=== PATIENT | male | born 1995 | race Caucasian/White ===

== ENCOUNTER 2017-09-07 11:58 | Emergency (ER) | payer BC ==
[2017-09-07] MEDS ORDERED: MAG HYDROX/AL HYDROX/SIMETH SUSP 30 ML UDCUP PO ONE (13:07)
[2017-09-07] MEDS ORDERED: METOCLOPRAMIDE HCL ORAL SOLN 10 MG/10 ML UDCUP PO ONE (13:07)
[2017-09-07] MEDS ORDERED: LIDOCAINE 2% VISCOUS SOLN 20 ML UDCUP PO ONE (13:07)
--- NOTE | 2017-09-07 13:10 | ER Document Report ---
ED General - General Chief Complaint: Nausea/Vomiting Stated Complaint: VOMITING Time Seen by Provider: 09/07/17 12:49 Notes: Patient presents with intermittent epigastric discomfort that started on Sunday. Denies any black or red stool and denies any medical problems other than having to use an inhaler sparingly. He was seen by his primary care physician 3 days ago and was given a work excuse with no medical intervention. He called the primary care physician today because his symptoms have continued and he is told to come to the emergency department. Denies any bilious or bloody vomitus. His pain is better he states after eating. Denies any recent fevers cough congestion or chest pain. He states that he does have burning in his throat but is worse after vomiting. TRAVEL OUTSIDE OF THE [place] IN LAST 30 DAYS: No - Related Data Allergies/Adverse Reactions: No Known Allergies Allergy (Verified 09/07/17 11:59) Past Medical History - Social History Smoking Status: Former Smoker Chew tobacco use (# tins/day): No Frequency of alcohol use: None Drug Abuse: None Family History: None Patient has suicidal ideation: No Patient has homicidal ideation: No Pulmonary Medical History: Reports: Hx Asthma Renal/ Medical History: Denies: Hx Peritoneal Dialysis Review of Systems - Review of Systems Constitutional: No symptoms reported EENT: Other - Burning in throat Cardiovascular: No symptoms reported Respiratory: No symptoms reported Gastrointestinal: See HPI, Nausea, Vomiting Genitourinary: No symptoms reported Male Genitourinary: No symptoms reported Musculoskeletal: No symptoms reported Skin: No symptoms reported Hematologic/Lymphatic: No symptoms reported Neurological/Psychological: No symptoms reported Physical Exam - Vital signs Vitals: Temp Pulse Resp BP Pulse Ox 97.9 F 57 L 18 147/92 H 98 09/07/17 12:09 09/07/17 12:09 09/07/17 12:09 09/07/17 12:09 09/07/17 12:09 - General General appearance: Appears well, Alert - HEENT Head: Normocephalic Eyes: Normal - Respiratory Respiratory status: No respiratory distress Chest status: Nontender Breath sounds: Normal - Cardiovascular Rhythm: Regular Heart sounds: Normal auscultation - Abdominal Inspection: Normal Distension: No distension Bowel sounds: Normal Tenderness: Tender - Mild tenderness in epigastric area with no Thomas sign or guarding or rebound - Extremities General upper extremity: Normal inspection - Neurological Cognition: Normal Orientation: AAOx4 - Psychological Associated symptoms: Normal affect Course - Re-evaluation Re-evalutation: 09/07/17 15:00 Patient symptoms improved with GI cocktail. Patient's pain is worse after eating consistent with duodenitis. Will provide nausea medication and Zantac and patient is to follow-up in 1 week with family medicine physician. Return precautions provided to return to emergency if symptoms were to worsen. - Vital Signs Vital signs: Temp Pulse Resp BP Pulse Ox 97.9 F 57 L 18 147/92 H 98 09/07/17 12:09 09/07/17 12:09 09/07/17 12:09 09/07/17 12:09 09/07/17 12:09 - Laboratory Result Diagrams: 09/07/17 13:17 09/07/17 13:17 Laboratory results interpreted by me: 09/07/17 09/07/17 13:17 13:17 RBC 6.00 H Hgb 17.6 H Hct 51.6 H Seg Neutrophils % 82.6 H Lymphocytes % 11.3 L Calcium 10.5 H Total Protein 8.3 H Albumin 5.4 H Discharge - Discharge Clinical Impression: Duodenitis Disposition: HOME, SELF-CARE Additional Instructions: Please follow-up with your primary care physician in 1 week for reevaluation or sooner to the emergency department if symptoms are worsening. Prescriptions: Ondansetron [Zofran Odt 4 mg Tablet] 1 tab PO Q4H PRN #15 tab.rapdis PRN Reason: For Nausea/Vomiting Ranitidine HCl [Zantac] 150 mg PO BID #60 tablet
[2017-09-07 13:30] LABS: ABSOLUTE EOSINOPHILS # (AUTO) 0.1 10^3/uL (0.0-0.6); ABSOLUTE LYMPHOCYTES (AUTO) 1.1 10^3/uL (0.5-4.7); ABSOLUTE MONOCYTES (AUTO) 0.5 10^3/uL (0.1-1.4); ABSOLUTE NEUT (AUTO) 7.8 10^3/uL (1.7-8.2); BASOPHILS % (AUTO) 0.2 % (0-2); HEMATOCRIT 51.6 % (37.9-51.0); HEMOGLOBIN 17.6 g/dL (13.5-17.0); LYMPHOCYTES % (AUTO) 11.3 % (13-45); MEAN CORPUSCULAR HEMOGLOBIN 29.4 pg (27.0-33.4); MEAN CORPUSCULAR HGB CONC 34.1 g/dL (32.0-36.0); MEAN CORPUSCULAR VOLUME 86 fl (80-97); MONOCYTES % (AUTO) 4.9 % (3-13); PLATELET COUNT 266 10^3/uL (150-450); SEGMENTED NEUTROPHILS % (AUTO) 82.6 % (42-78); TOTAL CELLS COUNTED % (AUTO) 100 %; WHITE BLOOD COUNT 9.5 10^3/uL (4.0-10.5)
[2017-09-07 13:58] LABS: ALANINE AMINOTRANSFERASE 57 U/L (21-72); ALBUMIN 5.4 g/dL (3.5-5.0); ALKALINE PHOSPHATASE 59 U/L (38-126); ANION GAP 15 (5-19); ASPARTATE AMINO TRANSFERASE 27 U/L (17-59); BILIRUBIN,DIRECT 0.1 mg/dL (0.0-0.4); BILIRUBIN,TOTAL 0.6 mg/dL (0.2-1.3); BLOOD UREA NITROGEN 14 mg/dL (7-20); CALCIUM 10.5 mg/dL (8.4-10.2); CARBON DIOXIDE 25 mmol/L (22-30); CHLORIDE 101 mmol/L (98-107); GLUCOSE 109 mg/dL (75-110); LIPASE 56.1 U/L (23-300); POTASSIUM 4.3 mmol/L (3.6-5.0); SODIUM 140.8 mmol/L (137-145); TOTAL PROTEIN 8.3 g/dL (6.3-8.2)
[2017-09-07 15:46] VITALS: BP 142/87
== END 2017-09-07 15:43 | disposition home or self-care (01) ==
LOC: ER 11:58
DX: K29.80 Duodenitis without bleeding (principal); J45.909 Unspecified asthma, uncomplicated; Z87.891 Personal history of nicotine dependence
CPT/HCPCS: 99283; 36415; 83690; 85025; 80053; J3490

== ENCOUNTER 2018-06-17 14:02 | Emergency (ER) | payer BC ==
[2018-06-17 14:15] VITALS: BP 137/83
[2018-06-17] MEDS ORDERED: IBUPROFEN 600 MG TABLET PO ONE (14:25)
--- NOTE | 2018-06-17 14:27 | ER Document Report ---
HPI - HPI Time Seen by Provider: 06/17/18 14:24 Pain Level: 3 Notes: Patient is an otherwise healthy 23-year-old male who presents with left hand pain. Patient reports he had a wall just prior to arrival. Patient reports increased stressors in his life, states his significant other had a miscarriage yesterday and is very upset about this. Patient denies any other past medical history, states all immunizations are up-to-date. - REPRODUCTIVE Reproductive: DENIES: : Past Medical History - General Information source: Patient - Social History Smoking Status: Never Smoker Frequency of alcohol use: None Drug Abuse: None Family History: None - Medical History Medical History: Negative Renal/ Medical History: Denies: Hx Peritoneal Dialysis Surgical Hx: Negative - Immunizations Immunizations up to date: Yes Vertical Provider Document - CONSTITUTIONAL Notes: PHYSICAL EXAMINATION: GENERAL: Well-appearing, well-nourished and in no acute distress. HEAD: Atraumatic, normocephalic. EYES: Pupils equal round extraocular movements intact, conjunctiva are normal. ENT: Nares patent NECK: Normal range of motion LUNGS: No respiratory distress Musculoskeletal: Normal range of motion, swelling noted to dorsal surface of left hand near the fifth metacarpal. Cap refill less than 3 seconds normal motor and sensation distal to injury. NEUROLOGICAL: Normal speech, normal gait. PSYCH: Normal mood, normal affect. SKIN: Warm, Dry, normal turgor, no rashes or lesions noted. - INFECTION CONTROL TRAVEL OUTSIDE OF THE [place] IN LAST 30 DAYS: No Course - Re-evaluation Re-evalutation: 06/17/18 15:00 X-ray reveals displaced fracture of the fifth metacarpal on the left hand. Patient will be placed in a splint and sling and discharged home in stable condition with plan to follow-up with orthopedics. - Vital Signs Vital signs: Temp Pulse Resp BP Pulse Ox 98.4 F 74 18 137/83 H 98 06/17/18 14:13 06/17/18 14:13 06/17/18 14:13 06/17/18 14:13 06/17/18 14:13 Procedures - Immobilization Left hand Pre-Proc Neuro Vasc Exam: Normal Immobilizer type: Ulnar, Sling Performed by: PCT Post-Proc Neuro Vasc Exam: Normal Alignment checked and good: Yes Discharge - Discharge Clinical Impression: Closed fracture of 5th metacarpal Qualifiers: Encounter type: initial encounter Metacarpal location: unspecified portion of metacarpal Fracture alignment: displaced Laterality: left Qualified Code(s): S62.307A - Unspecified fracture of fifth metacarpal bone, left hand, initial encounter for closed fracture Condition: Stable Disposition: HOME, SELF-CARE Additional Instructions: Fractured Fifth Metacarpal (Boxer's) You have a fracture of the fifth metacarpal bone in the hand, often called a Boxer's Fracture. The fracture is usually caused by striking the knuckle against a hard surface -- such as hitting a wall with the fist. This fracture heals well. Some degree of angle in the fracture is perfectly acceptable, resulting in only a slightly rounder knuckle. Your physician has determined whether your fracture could benefit from "setting", and has outlined a treatment plan for you. The usual treatment is splinting for four to six weeks -- a cast is not usually necessary. At first, the injury should be elevated and ice packed. Contact the doctor at once if swelling or pain becomes severe, or if numbness develops. Please take ibuprofen 600 mg every 6 hours for pain and inflammation. Use the hydrocodone for severe pain you may take 1/2-1 tablet every 4 hours as needed. Please follow-up with orthopedics, call them Sunday to schedule an appointment. Return to the emergency department if the swelling or pain becomes severe or if you develop numbness. Referrals: CARLYN RIVAS, [ACTIVE STAFF] - Follow up as needed
--- NOTE | 2018-06-17 14:48 | RADIOLOGY REPORT (SQ) ---
EXAM DESCRIPTION: HAND LEFT 3 VIEWS COMPLETED DATE/TIME: 06/17/2018 2:38 pm REASON FOR STUDY: punched a wall COMPARISON: None. EXAM PARAMETERS: NUMBER OF VIEWS: Three views. TECHNIQUE: AP, lateral and oblique radiographic images acquired of the left hand. LIMITATIONS: None. FINDINGS: MINERALIZATION: Normal. BONES: Mildly angulated (apex directed dorsally) oblique fracture through the 5th metacarpal distal d iaphysis. Osseous mineralization and alignment are otherwise normal. JOINTS: No effusions. SOFT TISSUES: Mild soft tissue swelling overlies the injury site. OTHER: No other significant finding. IMPRESSION: Mildly angulated oblique fracture through the 5th metacarpal distal diaphysis. TECHNICAL DOCUMENTATION: JOB ID: [id number] [employer]- All Rights Reserved Reading location - IP/workstation name: [email or web address]
[2018-06-17] MEDS ORDERED: HYDROCODONE/ACETAMINOPHEN 5-325 MG (6 TAB/ER DISP) PO PRN (15:42)
== END 2018-06-17 15:46 | disposition home or self-care (01) ==
LOC: ER 14:02
DX: S62.307A Unspecified fracture of fifth metacarpal bone, left hand, initial encounter for closed fracture (principal); W22.8XXA Striking against or struck by other objects, initial encounter
CPT/HCPCS: 99283

== ENCOUNTER 2018-07-12 10:30 | Day surgery (SDC) | payer BC ==
[~2018-07-12 10:30] MED LIST: ACETAMINOPHEN 1,000 MG/100 ML RTUPB IV ONE; BUPIVACAINE HCL 0.5 % INJ/PF 30 ML SDV ONE; DEXAMETHASONE SOD PHOSPHATE INJ 4 MG/1 ML VIAL ONE; FENTANYL CITRATE INJ/PF 100 MCG/2 ML AMPUL ONE; MIDAZOLAM 2 MG/2 ML INJ ONE; ONDANSETRON HCL INJ/PF 4 MG/2 ML SDV ONE; PROPOFOL INJ 200 MG/20 ML VIAL IV ONE; SUCCINYLCHOLINE CHLORIDE INJ 200 MG/10 ML VIAL ONE
[2018-07-12] MEDS ORDERED: LIDOCAINE 2% INJ-PF (20 MG/ML) 10 ML AMPUL ONE (10:43)
[2018-07-12] MEDS ORDERED: CEFAZOLIN 2 GM/D5W RTU 2 GM/50 ML RTUPB IV ONE (10:53)
[2018-07-12] MEDS ORDERED: DIPHENHYDRAMINE HCL 50 MG/ML VIAL IV PRN (12:43)
[2018-07-12] MEDS ORDERED: MORPHINE SULFATE 10 MG/ML INJ IV PRN (12:43)
[2018-07-12] MEDS ORDERED: ONDANSETRON HCL INJ/PF 4 MG/2 ML SDV IV PRN ×2 (12:43→13:34)
[2018-07-12] MEDS ORDERED: MEPERIDINE HCL/PF INJ 25 MG/1 ML DISP.SYRIN IV PRN (12:43)
[2018-07-12] MEDS ORDERED: PROMETHAZINE HCL INJ 25 MG/1 ML VIAL IV PRN ×2 (12:43)
[2018-07-12] MEDS ORDERED: FENTANYL CITRATE INJ/PF 100 MCG/2 ML AMPUL IV PRN ×3 (12:43)
[2018-07-12] MEDS ORDERED: OXYCODONE-ACETAMINOPHEN 5-325 MG TABLET PO PRN (13:34)
--- NOTE | 2018-07-12 13:37 | Discharge Summary ---
Discharge Summary (SDC) - Discharge Final Diagnosis: Left fifth metacarpal neck fracture Date of Surgery: 07/12/18 Discharge Date: 07/12/18 Condition: Good Treatment or Instructions: Schedule Follow Up w/ Dr. Osvaldo Judge @ [facility] for Surgery to be seen in 10-14 days or as scheduled [place]: [place]: [place]: May remove dressing on postop day #3, keep incision covered and dry. Ice and elevate May begin finger range of motion attempting to make full fist. Stool softener of choice when on pain medication. USE OF [id number] IBUPROFEN: Ibuprofen (Advil, Nuprin, Medipren, Motrin IB) is a medication for fever and pain control. In addition, it has anti- inflammatory effects which may be beneficial, especially in the treatment of injuries. It's best to take ibuprofen with food. Persons with ulcer disease or allergy to aspirin should notify their physician of this before taking ibuprofen. Ibuprofen can be given every four to six hours, for a total of four doses daily. Age Pain or fever dose Antiinflammatory dose 6-8 yr 200 mg (1 tab) 200 mg (1 tab) 9-11 yr 200 mg (1 tab) 200-400 mg (1-2 tab) 11-14 yr 200-400 mg (1-2 tab) 400 mg (2 tab) 15-adult 400 mg (2 tab) 600 mg (3 tab) ORAL NARCOTIC MEDICATION: You have been given a prescription for pain control. This medication is a narcotic. It's best taken with food, as nausea can result if taken on an empty stomach. Don't operate machinery or drive within six hours of taking this medication. Do not combine this medicine with alcohol, or with any medication which can cause sedation (such as cold tablets or sleeping pills) unless you get permission from the physician. Narcotics tend to cause constipation. If possible, drink plenty of fluids and eat a diet high in fiber and fruits. Please be aware that prescription narcotics also have the potential for abuse. People become addicted to these medications because of the general sense of wellbeing that they induce. This feeling along with a significant reduction in tension, anxiety, and aggression provides a stimulating seductive quality to these drugs. Once your pain is under control, we encourage you to discard your unused narcotics. Prescriptions: Oxycodone HCl/Acetaminophen [Percocet 5-325 mg Tablet] 1 tab PO Q6 #25 tab Referrals: JORGE SANDS PA [Primary Care Provider] - Discharge Diet: As Tolerated Respiratory Treatments at Home: Deep Breathing/Coughing Discharge Activity: No Lifting Over 10 Pounds, No Lifting/Push/Pulling Report the Following to Your Physician Immediately: Fever over 101 Degrees, Unusual Bleeding, Redness, Swelling, Warmth, Increased Soreness
--- NOTE | 2018-07-12 13:41 | Operative Report ---
Operative Report DATE OF SURGERY: 07/12/18 PREOPERATIVE DIAGNOSIS: Left fifth metacarpal neck fracture POSTOPERATIVE DIAGNOSIS: Same OPERATION: ORIF left fifth metacarpal neck SURGEON: CARLYN RIVAS ANESTHESIA: GA COMPLICATIONS: None ESTIMATED BLOOD LOSS: Minimal PROCEDURE: Indication for above procedure: 23-year-old male who sustained 5th metacarpal neck fracture. We attempted conservative management including splinting however at follow-up there was increased evidence of shortening and extensor lag. At that point decision was made to proceed with operative intervention to restore height. Risks and benefits were explained patient verbalized understanding consented for the procedure. Procedure In Detail: Patient was seen and evaluated in the preoperative holding area. The LEFT upper extremity was initialized and marked. Patient received 2g of Ancef IV for bacterial prophylaxis. Patient was taken back to the operative room where transferred to the operative table and placed under general anesthesia. Once they were adequately anesthetized a nonsterile tourniquet was placed on the upper extremity. A surgical team debriefing was performed ensuring all instrumentation was available, the surgical procedure was discussed with possible concerns reviewed. The upper extremity was prepped with chlorhexidine and alcohol and draped in a sterile fashion. A timeout was done identifying correct patient, procedure and extremity everyone in attendance agree with this and verbalized no concerns. The extremity was exsanguinated the tourniquet was inflated to 250 mmHg. Longitudinal skin incision was made midline over the fifth MCP joint. Blunt dissection was performed. The extensor mechanism was then split between the EDM and EDC and the MCP joint approached. The fracture site demonstrate early evidence of callus a [place] elevator was placed within the fracture site to perform osteoclasis. Once adequate mobilization of the fracture was achieved a reduction tenaculum was placed. C-arm fluoroscopy was obtained confirming mosque of height and alignment. The K wire for a Dean 3.0 mm stainless steel head this compression screw was placed along the dorsal third of the metacarpal head across the fracture site. C-arm fluoroscopy was obtained confirming appropriate placement. The distal aspect was then countersunk. And a 3.0 x 40 mm headless compression screw was placed. During insertion special attention was focused on avoiding malrotation of the digit. Once adequate compression and fixation was obtained patient had no evidence of malrotation with tenodesis or forearm squeeze. Wound was then copiously irrigated with normal saline. C-arm fluoroscopy was obtained confirming adequate mosque of height with minimal displacement, angulation. Wound was copiously irrigated with normal saline. Extensor mechanism was closed with interrupted 3-0 Vicryl suture. Subcutaneous tissues closed with 3-0 Vicryl suture. Skin was closed with running horizontal mattress 4-0 nylon suture. 10 cc of 0.5% Marcaine without epinephrine was injected for postoperative pain control. Patient was placed in a volar splint leaving the IP joints free. Sponge counts, instrument counts, needle counts were correct. Patient was then awoken from anesthesia. Transferred from the operating room table to the operating room stretcher. There was no intraoperative complications patient tolerated procedure well stable to PACU. Postop plan: Patient follow-up the office in 2 weeks we will obtain radiographs and transition to removable boxer splint.
[2018-07-12] MEDS ORDERED: OXYCODONE-ACETAMINOPHEN 5-325 MG TABLET ONE (14:05)
--- NOTE | 2018-07-12 14:40 | RADIOLOGY REPORT (SQ) ---
EXAM DESCRIPTION: NO CHG FLUORO; HAND LEFT 3 VIEWS COMPLETED DATE/TIME: 07/12/2018 1:40 pm; 07/12/2018 1:41 pm REASON FOR STUDY: ORIF LEFT 5TH METACARPAL ASST WITH FLUORO IN OR S62.336D DISP FX OF NK OF 5TH MC BONE, R HAND, 7THD COMPARISON: 06/17/2018. FLUOROSCOPY TIME: 25 seconds. 4 images saved to PACS. TECHNIQUE: Intra-operative images acquired during surgical procedure to evaluate progress. NUMBER OF IMAGES: 4 images. LIMITATIONS: None. FINDINGS: Images acquired during surgical fixation. IMPRESSION: IMAGE(S) OBTAINED DURING PROCEDURE. COMMENT: Quality ID 145: Final reports for procedures using fluoroscopy that document radiation exp osure indices, or exposure time and number of fluorographic images (if radiation exposure indices are not available) Please consult full operative report of the attending physician for description of the procedure. TECHNICAL DOCUMENTATION: JOB ID: [id number] [employer]- All Rights Reserved Reading location - IP/workstation name: [email or web address]
--- NOTE | 2018-07-12 14:40 | RADIOLOGY REPORT (SQ) ---
EXAM DESCRIPTION: NO CHG FLUORO; HAND LEFT 3 VIEWS COMPLETED DATE/TIME: 07/12/2018 1:40 pm; 07/12/2018 1:41 pm REASON FOR STUDY: ORIF LEFT 5TH METACARPAL ASST WITH FLUORO IN OR S62.336D DISP FX OF NK OF 5TH MC BONE, R HAND, 7THD COMPARISON: 06/17/2018. FLUOROSCOPY TIME: 25 seconds. 4 images saved to PACS. TECHNIQUE: Intra-operative images acquired during surgical procedure to evaluate progress. NUMBER OF IMAGES: 4 images. LIMITATIONS: None. FINDINGS: Images acquired during surgical fixation. IMPRESSION: IMAGE(S) OBTAINED DURING PROCEDURE. COMMENT: Quality ID [id number]: Final reports for procedures using fluoroscopy that document radiation exp osure indices, or exposure time and number of fluorographic images (if radiation exposure indices are not available) Please consult full operative report of the attending physician for description of the procedure. TECHNICAL DOCUMENTATION: JOB ID: [id number] [employer]- All Rights Reserved Reading location - IP/workstation name: [email or web address]
[2018-07-12 15:40] VITALS: BP 126/75
== END 2018-07-12 15:30 | disposition home or self-care (01) ==
LOC: EDBD 10:30 → OROUT 10:30
PROVIDERS: ATTEND Orthopaedic Surgery
DX: S62.336D Displaced fracture of neck of fifth metacarpal bone, right hand, subsequent encounter for fracture with routine healing (principal); X58.XXXD Exposure to other specified factors, subsequent encounter; F12.90 Cannabis use, unspecified, uncomplicated
CPT/HCPCS: 73130; 26615; C1713 ×3; J2250; J3490 ×2; J1100; J3010; J2405; J2704; J0690; J0131; 01830; J0330

== ENCOUNTER 2019-06-05 14:44 | Emergency (ER) | payer BC ==
[2019-06-05 15:48] LABS: ABSOLUTE EOSINOPHILS # (AUTO) 0.1 10^3/uL (0.0-0.6); ABSOLUTE LYMPHOCYTES (AUTO) 1.3 10^3/uL (0.5-4.7); ABSOLUTE MONOCYTES (AUTO) 0.8 10^3/uL (0.1-1.4); ABSOLUTE NEUT (AUTO) 5.3 10^3/uL (1.7-8.2); BASOPHILS % (AUTO) 0.6 % (0-2); EOSINOPHILS % (AUTO) 1.9 % (0-6); HEMOGLOBIN 17.7 g/dL (13.5-17.0); LYMPHOCYTES % (AUTO) 17.5 % (13-45); MEAN CORPUSCULAR HEMOGLOBIN 29.6 pg (27.0-33.4); MEAN CORPUSCULAR VOLUME 87 fl (80-97); MONOCYTES % (AUTO) 10.4 % (3-13); PLATELET COUNT 242 10^3/uL (150-450); RED BLOOD COUNT 5.98 10^6/uL (4.35-5.55); RED CELL DISTRIBUTION WIDTH 13.7 % (11.5-14.0); SEGMENTED NEUTROPHILS % (AUTO) 69.6 % (42-78); TOTAL CELLS COUNTED % (AUTO) 100 %; WHITE BLOOD COUNT 7.6 10^3/uL (4.0-10.5)
[2019-06-05 15:55] LABS: ALBUMIN 4.9 g/dL (3.5-5.0); ALKALINE PHOSPHATASE 56 U/L (38-126); ANION GAP 14 (5-19); APPEARANCE,URINE SLIGHTLY-CLOUDY; ASPARTATE AMINO TRANSFERASE 37 U/L (17-59); BILIRUBIN,DIRECT 0.2 mg/dL (0.0-0.4); BILIRUBIN,TOTAL 0.6 mg/dL (0.2-1.3); BILIRUBIN,URINE NEGATIVE (NEGATIVE); BLOOD UREA NITROGEN 15 mg/dL (7-20); CARBON DIOXIDE 24 mmol/L (22-30); CHLORIDE 105 mmol/L (98-107); COLOR,URINE YELLOW; GLUCOSE 98 mg/dL (75-110); GLUCOSE, URINE NEGATIVE (NEGATIVE); KETONES,URINE NEGATIVE (NEGATIVE); LEUKOCYTE ESTERASE,URINE NEGATIVE (NEGATIVE); NITRITE,URINE NEGATIVE (NEGATIVE); POTASSIUM 4.4 mmol/L (3.6-5.0); PROTEIN,URINE 30 mg/dL (NEGATIVE); TOTAL PROTEIN 8.2 g/dL (6.3-8.2); UROBILINOGEN,URINE NEGATIVE mg/dL (<2.0)
[2019-06-05 15:56] LABS: ACETAMINOPHEN < 10 ug/mL (10-30); ALCOHOL < 10 mg/dL (NONE DETECTED); SALICYLATE < 1.0 mg/dL (2.0-20.0)
[2019-06-05 16:05] LABS: URINE AMPHETAMINES SCREEN NEGATIVE; URINE BARBITURATES SCREEN NEGATIVE; URINE BENZODIAZEPINES SCREEN NEGATIVE; URINE COCAINE SCREEN NEGATIVE; URINE METHADONE SCREEN NEGATIVE; URINE PHENCYCLIDINE SCREEN NEGATIVE
--- NOTE | 2019-06-05 16:06 | ER Document Report ---
ED General <KEVIN CASTILLO - Last Filed: 06/05/19 19:01> - General TRAVEL OUTSIDE OF THE [place] IN LAST 30 DAYS: No - Related Data Home Medications: None <MARCIN ESCALANTE - Last Filed: 06/05/19 19:38> - General Chief Complaint: Suicidal Ideation Stated Complaint: SUICIDAL IDEATION Time Seen by Provider: 06/05/19 15:40 Primary Care Provider: [facility] [Outside] - Follow up as needed - HPI Notes: Patient is a 24-year-old male who presents to the emergency department for evaluation after ingesting bleach. Evidently, he had been in an argument with his significant other. This is been a point of stress for him for some time. The patient ingested 2 mouthfuls of bleach. Afterwards he immediately regretted it, induced vomiting. He had 1 episode of large yellow emesis. He states he has a mild burning in his abdomen at this time that he rates a 1 out of 10, as well as a burning in his throat. He denies any blood in his emesis. He states that this time he is not suicidal, nor is he homicidal. He denies any visual or auditory hallucination. He does agree that he probably needs some sort of therapy to be helpful. He states that he has been out of work since June, usually works in [employer]. He states that he has had issues with his relationship, states he has cheated on her in the past and "has not done this things to make it right." He really does not elaborate. (MARCIN ESCALANTE) - Related Data Allergies/Adverse Reactions: No Known Allergies Allergy (Verified 07/10/18 16:26) Past Medical History - General Information source: Patient, Friend - Social History Smoking Status: Current Some Day Smoker Family History: None Patient has suicidal ideation: Yes Patient has homicidal ideation: No - Past Medical History Cardiac Medical History: Denies: Hx Coronary Artery Disease, Hx Heart Attack, Hx Hypertension Pulmonary Medical History: Reports: Hx Asthma Denies: Hx Bronchitis, Hx COPD, Hx Pneumonia Neurological Medical History: Denies: Hx Cerebrovascular Accident, Hx Seizures Renal/ Medical History: Denies: Hx Peritoneal Dialysis Musculoskeletal Medical History: Denies Hx Arthritis - Immunizations Immunizations up to date: Yes Hx Diphtheria, Pertussis, Tetanus Vaccination: Yes <MARCIN ESCALANTE - Last Filed: 06/05/19 19:38> Review of Systems - Review of Systems Constitutional: No symptoms reported EENT: See HPI Cardiovascular: No symptoms reported Respiratory: No symptoms reported Gastrointestinal: See HPI Genitourinary: No symptoms reported Musculoskeletal: No symptoms reported Skin: No symptoms reported Neurological/Psychological: No symptoms reported <MARCIN ESCALANTE - Last Filed: 06/05/19 19:38> Physical Exam <MARCIN ESCALANTE - Last Filed: 06/05/19 19:38> - Vital signs Vitals: Temp Pulse Resp BP Pulse Ox 98.6 F 86 20 150/106 H 98 06/05/19 14:56 06/05/19 14:56 06/05/19 14:56 06/05/19 14:56 06/05/19 14:56 - Notes Notes: There is a 24-year-old male who appears stated age in no acute distress. He is mildly depressed and flattened affect, but cooperative with examiner. Vital signs reviewed, please refer to chart. Head is normocephalic, atraumatic. Pupils equal round, reactive to light. Oral mucosa is moist and without lesions. Pharynx is without erythema or exudate. Neck is supple without m eningismus. Heart is regular rate and rhythm. Lungs are clear to auscultation bilaterally. Abdomen is soft, nontender, normoactive bowel sounds throughout. Extremities without cyanosis, clubbing. Posterior calves are nontender. Peripheral pulses are equal. Skin is warm and dry. Patient is awake, alert, neurological exam is nonfocal. (MARCIN ESCALANTE) Course - Laboratory Result Diagrams: 06/05/19 15:00 06/05/19 15:00 <KEVIN CASTILLO - Last Filed: 06/05/19 19:01> - Laboratory Result Diagrams: 06/05/19 15:00 06/05/19 15:00 - Diagnostic Test Radiology reviewed: Image reviewed, Reports reviewed <MARCIN ESCALANTE - Last Filed: 06/05/19 19:38> - Re-evaluation Re-evalutation: 06/05/19 16:05 Patient presents the emergency department for evaluation. He did not ingest a significant amount of bleach. I do believe this was more of a suicidal gesture, and it seems as if he immediately regretted it following ingestion. He was a ble to induce his own vomiting. At this point, I am only ordering a chest x-ray to rule out significant esophageal perforation, but he has a completely benign abdominal exam. Awaiting laboratory investigations, we will continue to monitor. 06/05/19 19:33 Laboratory investigations and imaging are entirely unremarkable. Patient complained of a headache later, was given Tylenol, but serial abdominal exams are benign. He has no evidence of any burn to the oral mucosa, not even a significant pharyngeal erythema or edema. I am not concerned about significant injury from this caustic ingestion. The patient was told multiple times, and voiced understanding, to the fact that he should not do this in the future. He denies any current suicidal ideation, no homicidal ideation. He was evaluated by the psych social team. He was given Zyprexa, will be started on Zyprexa as an outpatient. He is given outpatient resources. He is to follow-up as reported, return to the ED with worsening. (MARCIN ESCALANTE) - Vital Signs Vital signs: Temp Pulse Resp BP Pulse Ox 98.0 F 75 16 135/60 H 100 06/05/19 17:17 06/05/19 17:17 06/05/19 17:17 06/05/19 17:17 06/05/19 17:17 - Laboratory Laboratory results interpreted by me: 06/05/19 06/05/19 06/05/19 15:00 15:00 15:00 RBC 5.98 H Hgb 17.7 H Hct 52.0 H Urine Protein 30 H Salicylates < 1.0 L Acetaminophen < 10 L - Diagnostic Test Radiology results interpreted by me: 06/05/19 19:34 Chest X-Ray 06/05/19 15:57 IMPRESSION: NO ACUTE RADIOGRAPHIC FINDING IN THE CHEST. (MARCIN ESCALANTE) - EKG Interpretation by Me Additional EKG results interpreted by me: 06/05/19 19:35 Sinus mechanism with a normal rate. Left axis deviation, LAFB. Nonspecific ST changes, but no acute changes concerning for ischemia or infarction. (MARCIN ESCALANTE) Discharge <KEVIN CASTILLO - Last Filed: 06/05/19 19:01> <MARCIN ESCALANTE - Last Filed: 06/05/19 19:38> - Discharge Clinical Impression: Suicidal ideation Ingestion of bleach Qualifiers: Encounter type: initial encounter Injury intent: intentional self-harm Qualified Code(s): T54.92XA - Toxic effect of unspecified corrosive substance, intentional self-harm, initial encounter Condition: Stable Disposition: HOME, SELF-CARE Additional Instructions: You have been evaluated by both medical and behavioral health teams and have been deemed appropriate for discharge. Medication recommendations have been provided and are as follows: Zyprexa 2.5MG, twice a day You have identified [facility] as your preferred mental health provider. You are highly encouraged to follow up with [facility] for medication management and mental health services. The contact information for [facility] has been provided, as needed. DEPRESSION: Your evaluation reveals that you may have mental depression. While symptoms may be vague, they often include disturbance of sleep, fatigue, loss of appetite, and general loss of interest in life. While depression may be a side effect of drugs, or a reaction to a major change in your life, many cases have no known cause. If depression is acute, and related to a major loss in your life, you can expect it to clear completely with time. If you have been depressed a long angie e, are prone to repeated bouts of depression or low mood, or have been thinking of suicide, get help. Depression can be treated with anti-depressant medication and counselling. Long-term depression will often take a few weeks to clear, even with appropriate medication. Follow-up care is important. SUICIDAL IDEATION: Suicidal ideation is a common medical term for thoughts about suicide, which may be as detailed as a formulated plan, without the suicidal act itself. Although most people who undergo suicidal ideation do not commit suicide, some go on to make suicide attempts. The range of suicidal ideation varies greatly from fleeting to detailed planning, role playing, and unsuccessful attempts. While thoughts about suicide are common, most people do not carry out serious actions to commit suicide. Based upon your evaluation and discussion with you, we do not believe you are currently at risk to act upon your thoughts of suicide. You have agreed to return to the Emergency Department, at any time, if you feel inclined to act upon your suicidal thoughts. AT ANY TIME, IF YOUR SYMPTOMS CHANGE SIGNIFICANTLY OR WORSEN OR YOU DEVELOP NEW SYMPTOMS, RETURN TO THE EMERGENCY DEPARTMENT IMMEDIATELY FOR RE-EVALUATION. Referrals: [facility] [Outside] - Follow up as needed
[2019-06-05 16:07] LABS: URINE MARIJUANA (THC) SCREEN UNCONFIRMED POSITIVE
--- NOTE | 2019-06-05 16:21 | RADIOLOGY REPORT (SQ) ---
EXAM DESCRIPTION: CHEST 2 VIEWS COMPLETED DATE/TIME: 06/05/2019 4:13 pm REASON FOR STUDY: bleach ingestion COMPARISON: None. EXAM PARAMETERS: NUMBER OF VIEWS: two views TECHNIQUE: Digital Frontal and Lateral radiographic views of the chest acquired. RADIATION DOSE: NA LIMITATIONS: none FINDINGS: LUNGS AND PLEURA: No opacities, masses or pneumothorax. No pleural effusion. MEDIASTINUM AND HILAR STRUCTURES: No masses or contour abnormalities. HEART AND VASCULAR STRUCTURES: Heart normal size. No evidence for failure. BONES: No acute findings. HARDWARE: None in the chest. OTHER: No other significant finding. IMPRESSION: NO ACUTE RADIOGRAPHIC FINDING IN THE CHEST. TECHNICAL DOCUMENTATION: JOB ID: [id number] [employer]- All Rights Reserved Reading location - IP/workstation name: [email or web address]
--- NOTE | 2019-06-05 17:04 | EKG REPORT ---
SEVERITY:- ABNORMAL ECG - SINUS RHYTHM LEFT ANTERIOR FASCICULAR BLOCK : Confirmed by: Daniel Padron MD 05-Jun-2019 17:03:35
[2019-06-05] MEDS ORDERED: ACETAMINOPHEN 325 MG TABLET PO ONE (18:02)
[2019-06-05] MEDS ORDERED: OLANZAPINE 2.5 MG TABLET PO ONE (18:23)
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
[2019-06-05 19:58] VITALS: BP 140/93
== END 2019-06-05 19:56 | disposition home or self-care (01) ==
LOC: ER 14:44
DX: T54.92XA Toxic effect of unspecified corrosive substance, intentional self-harm, initial encounter (principal); R19.8 Other specified symptoms and signs involving the digestive system and abdomen; R09.89 Other specified symptoms and signs involving the circulatory and respiratory systems; Z63.0 Problems in relationship with spouse or partner; R51 Headache; I44.4 Left anterior fascicular block; F17.200 Nicotine dependence, unspecified, uncomplicated; J45.909 Unspecified asthma, uncomplicated
CPT/HCPCS: 93005; 36415; 80307 ×4; 85025; 80053; 81001; 71046; 93010; J3490; 99285